=== PATIENT | female | born 1975 ===

== ENCOUNTER 2023-04-11 18:15 | Emergency (ER) | payer SELFPAY ==
[~2023-04-11] VITALS: Ht 154.9 cm; Wt 71.8 kg
[2023-04-11 18:18] VITALS: BP 135/81; PULSE 135; RESP 18; O2SAT 99
== END 2023-04-11 18:56 | disposition left against medical advice (07) ==
LOC: ER 18:15 → EDBD 18:15 → ER 18:56
DX: F41.9 Anxiety disorder, unspecified (principal); R11.10 Vomiting, unspecified; Z53.21 Procedure and treatment not carried out due to patient leaving prior to being seen by health care provider